=== PATIENT | female | born 1985 | race Two or more races ===

== ENCOUNTER 2018-04-25 15:33 | Emergency (ER) | payer OTHER ==
--- NOTE | 2018-04-25 16:46 | ER Document Report ---
ED General - General Chief Complaint: Vag Bleeding, +preg <12wks Stated Complaint: VAGINAL BLEEDING Time Seen by Provider: 04/25/18 16:37 Notes: Patient presents with approximately 3 weeks of dark blood vaginal bleeding. Patient states that she took a positive test mid-March. This is patient's first . She states her last menstrual period was sometime in February but cannot tell me the time. States she went to urgent care because of the continuous mild bleeding she is experiencing they sent her to the emergency department to rule out ectopic . She thinks that she she has not had any stomach cramping in over a week and a half. No recent chills nausea vomiting or foul smells or concerning discharge for concern of vaginal infection. No known medical problems does not take any medications on a daily basis she lives in [place] so she does not have OB GEN establishment here TRAVEL OUTSIDE OF THE [place] IN LAST 30 DAYS: No - Related Data Allergies/Adverse Reactions: No Known Allergies Allergy (Unverified 04/25/18 15:36) Past Medical History - Social History Smoking Status: Current Every Day Smoker Family History: None Patient has suicidal ideation: No Patient has homicidal ideation: No Renal/ Medical History: Denies: Hx Peritoneal Dialysis Psychiatric Medical History: Reports: Hx Depression Review of Systems - Review of Systems Constitutional: No symptoms reported EENT: No symptoms reported Cardiovascular: No symptoms reported Respiratory: No symptoms reported Gastrointestinal: No symptoms reported Genitourinary: Other - vaginal bleeding Female Genitourinary: No symptoms reported Musculoskeletal: No symptoms reported Skin: No symptoms reported Hematologic/Lymphatic: No symptoms reported Neurological/Psychological: No symptoms reported Physical Exam - Vital signs Vitals: Temp Pulse Resp BP Pulse Ox 98.9 F 67 14 107/64 98 04/25/18 15:50 04/25/18 15:50 04/25/18 15:50 04/25/18 15:50 04/25/18 15:50 - General General appearance: Appears well, Alert - HEENT Head: Normocephalic, Atraumatic - Respiratory Respiratory status: No respiratory distress Chest status: Nontender Breath sounds: Normal Chest palpation: Normal - Cardiovascular Rhythm: Regular Heart sounds: Normal auscultation Murmur: No - Abdominal Inspection: Normal Distension: No distension Bowel sounds: Normal Tenderness: Nontender - Back Back: Normal - Extremities General upper extremity: Normal inspection General lower extremity: Normal inspection - Neurological Neuro grossly intact: Yes Cognition: Normal Orientation: AAOx4 Course - Re-evaluation Re-evalutation: 04/25/18 16:45 Patient well-appearing in no acute distress has not had any abdominal cramping for over a week and have therefore very low suspicion for ectopic . Will draw beta hCG quantitative. Urinalysis pending as well. 04/25/18 19:36 Patient's ultrasound suggestive of impending incomplete miscarriage. Discussed case with Dr. Carty [employer]. She instructed to have patient follow- up with your clinic later this week. I discussed this with the patient and provide return precautions regarding any signs of fevers chills or abdominal cramping foul-smelling discharge return immediately to the emergency department for concern of infection. Patient is asymptomatic at this time. - Vital Signs Vital signs: Temp Pulse Resp BP Pulse Ox 98.9 F 67 14 107/64 98 04/25/18 15:50 04/25/18 15:50 04/25/18 15:50 04/25/18 15:50 04/25/18 15:50 - Laboratory Laboratory results interpreted by me: 04/25/18 04/25/18 16:46 16:46 Beta HCG, Quant 98799.00 H Urine Ketones 20 H Urine Blood SMALL H Ur Leukocyte Esterase TRACE H Discharge - Discharge Clinical Impression: Incomplete miscarriage Condition: Good Disposition: HOME, SELF-CARE Instructions: Miscarriage ([facility]) Referrals: STEPHANI CARTY MD [ACTIVE STAFF] - Follow up as needed (Please follow-up with [employer]'s office by calling tomorrow to schedule appointment for or Tuesday of this week for repeat ultrasound and reevaluation)
[2018-04-25 17:13] LABS: APPEARANCE,URINE SLIGHTLY-CLOUDY; BILIRUBIN,URINE NEGATIVE (NEGATIVE); COLOR,URINE YELLOW; GLUCOSE, URINE NEGATIVE (NEGATIVE); KETONES,URINE 20 mg/dL (NEGATIVE); LEUKOCYTE ESTERASE,URINE TRACE (NEGATIVE); NITRITE,URINE NEGATIVE (NEGATIVE); PROTEIN,URINE NEGATIVE (NEGATIVE); URINE SPECIFIC GRAVITY 1.006; UROBILINOGEN,URINE NEGATIVE mg/dL (<2.0)
--- NOTE | 2018-04-25 19:10 | RADIOLOGY REPORT (SQ) ---
EXAM DESCRIPTION: U/S OB TRANSVAGINAL W/O DOP COMPLETED DATE/TIME: 04/25/2018 6:59 pm REASON FOR STUDY: r/o ectopic vs IUP, vag bleeding COMPARISON: None. TECHNIQUE: Transvaginal static and realtime grayscale images acquired of the pelvis. Additional tori cted spectral and color Doppler images recorded. All images stored on PACs. bHC,250 CLINICAL DATES: LMP 04/02/2018 3 weeks 2 days LIMITATIONS: None. FINDINGS: FETUS: Living intrauterine . ULTRASOUND EGA: 9 weeks 1 day by gestational sac size. ULTRASOUND THONY: 11/27/2018 CRL: Not seen. FHR: Not seen. Beats per minute. SUBCHORIONIC BLEED: Yes SIZE OF BLEED: 3 x 1.2 x 3.8 cm. UTERUS: No masses or anomalies. 11 x 6.4 x 7.2 cm. CERVICAL LENGTH: 4.7 cm. Closed. RIGHT ADNEXA: Normal ovary with normal vascular flow. 3.3 x 2.2 x 1.8 cm. No adnexal free fluid. No adnexal masses. LEFT ADNEXA: Ovary not seen. No adnexal free fluid. No adnexal masses. FREE FLUID: None. OTHER: No other significant finding. IMPRESSION: There is a gestational sac suggesting an gestation 9 weeks 1 day, but no pole is s een. There is no heart motion. Findings suggest an impending miscarriage. Follow-up as clini katie indicated. TECHNICAL DOCUMENTATION: JOB ID: [id number] [employer]- All Rights Reserved rev Reading location - IP/workstation name: [email or web address]
[2018-04-25 20:31] VITALS: BP 122/73
== END 2018-04-25 20:22 | disposition home or self-care (01) ==
LOC: ER 15:33
DX: O03.4 Incomplete spontaneous abortion without complication (principal); O99.331 Smoking (tobacco) complicating pregnancy, first trimester
CPT/HCPCS: 36415; 76817; 81001; 84702; 86900; 86901; 99284